=== PATIENT | male | born 1930 | race Caucasian/White ===

== ENCOUNTER 2017-05-24 16:03 | Emergency (ER) | payer MEDICARE ==
--- NOTE | 2017-05-24 16:06 | ED.PDOC ---
History of Present Illness - General Chief Complaint: Trauma Stated Complaint: Right lateral hip pain s/p fall. Time Seen by Provider: 05/24/17 16:06 Source: patient, RN notes reviewed, family Additional Information: Stoic elderly gentleman who fell from 4 foot high ladder about 6 hours ago. He states he got up ambulated with his cane, drove home, and later in the day called his daughter to let her know about his fall and the pain. Daughter insisted that patient come in to get evaluated in ER. Pt in no distress at rest. He is able to bear weight with assistance of his cane. He has a congenitally shortened right leg. It is not externally rotated. The only other injuries noted/reported are mild bruising to the medial right knee and an abrasion covered with a band-aid on right lateral elbow region. - History of Present Illness Occurred: this morning Severity: moderate Injuries/Pain Location: upper extremity, pelvis, lower extremity Reason for Fall: unknown Loss of Consciousness: no loss of consciousness Improving Factors: immobilization, rest Worsening Factors: movement Associated Symptoms (Fall): denies symptoms Allergies/Adverse Reactions: Allergies NO KNOWN ALLERGY Allergy (Verified 05/24/17 16:16) Home Medications: Ambulatory Orders Acetamin W/Cod #3 Tab [Tylenol #3 Tab] 1 ea PO Q4-6H PRN #20 tab 05/24/17 Review of Systems - Review of Systems Constitutional: States: no symptoms reported EENTM: States: no symptoms reported Respiratory: States: no symptoms reported Cardiology: States: no symptoms reported Gastrointestinal/Abdominal: States: no symptoms reported Genitourinary: States: no symptoms reported Musculoskeletal: States: see HPI, joint pain - Right hip pain Skin: States: see HPI - abrasion to right upper extremity covered wtih band-aid Neurological: States: no symptoms reported Endocrine: States: no symptoms reported Hematologic/Lymphatic: States: no symptoms reported Past Medical History (General) - Patient Medical History Hx Other - free text: Nurse Triage note reviewed. Physical Exam - Physical Exam General Appearance: Alert, Comfortable, No apparent distress, Well Developed, Well Groomed, Well Hydrated, Well Nourished Head Injury: no evidence of injury Eye Exam: bilateral normal ENT Exam: other - hard of hearing at baseline Cardiovascular/Respiratory: normal peripheral pulses, no respiratory distress Gastrointestinal/Abdominal: soft Back Exam: normal inspection Extremity Exam: pain with movement, other - RIght hip stiffness. 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 X-ray to rule out occult bony problems. 05/24/17 17:05 X-ray showed Right pubic rami fracture. CT Pelvis obtained to get a better view. Will discharge home given excellent family support and recommend Physical Therapy and close PCM follow-up. - EKG/XRAY/CT XRAY: hip - Right superior and inferior pubic rami fractures Departure - Departure Clinical Impression: Arthritis of right hip Contusion of hip, right Qualifiers: Encounter type: initial encounter Qualified Code(s): S70.01XA - Contusion of right hip, initial encounter Pubic ramus fracture Qualifiers: Encounter type: initial encounter Fracture type: closed Laterality: right Qualified Code(s): S32.591A - Other specified fracture of right pubis, initial encounter for closed fracture Time of Disposition: 17:16 Disposition: Discharge to Home or Self Care Departure Forms: ED Discharge - Pt. Copy, Patient Portal Self Enrollment Instructions: DI for Hip Fracture Activity: ambulate only with walker, as per physical therapy, walking as tolerated Prescriptions: Acetamin W/Cod #3 Tab [Tylenol #3 Tab] 1 ea PO Q4-6H PRN #20 tab PRN Reason: Pain -- Moderate To Severe Home Medications: Ambulatory Orders Acetamin W/Cod #3 Tab [Tylenol #3 Tab] 1 ea PO Q4-6H PRN #20 tab 05/24/17 Additional Instructions: Early mobility and Physical Therapy are best for recovery. Follow-up with primary care provider as soon as possible in order to arrange for home Physical Therapy. Use a walker and/or cane for now in order to weight bear as tolerated on right hip. Motion is lotion. Return to ER if condition worsens.
[2017-05-24 16:16] VITALS: TEMP 98.1
[2017-05-24] MEDS ORDERED: POVIDONE IODINE 10 % 15 ML UD TOP ONE (16:27)
--- NOTE | 2017-05-24 16:34 | RAD ---
EXAM DESCRIPTION: Hip,Right 2 Views CLINICAL HISTORY: 86 years Male s/p fall. Right lateral hip pain. r/o fracture. COMPARISON: None. TECHNIQUE: RIGHT hip, two views FINDINGS: There is chronic severe degenerative change involving the right hip. The acetabulum is shallow which may be congenital or as a result of chronic erosive change. There is deformity of the femoral head with volume loss. The hip is superiorly and laterally subluxed but this change appears chronic. There appears to be an acute fracture of the right superior and inferior pubic rami. Recommend further evaluation with CT of the pelvis. Vascular calcification is present. IMPRESSION: Acute fracture of the right superior and inferior pubic rami. Recommend CT of the pelvis. Suspect additional fracture may be present Chronic severe degenerative change in the right hip with chronic appearing subluxation and volume loss in the right femoral head Electronically signed by: Michelle Worley 05/24/2017 4:33 PM CDT
--- NOTE | 2017-05-24 17:02 | CT ---
PROCEDURE: Pelvis CLINICAL HISTORY: 86 years ,Male ,rule out acute right hip fracture s/p Fall COMPARISON: X-ray 05/24/2017 TECHNIQUE: Contiguous axial images obtained through the pelvis without IV contrast. Coronal and sagittal reformatted images obtained. This exam was performed according to our department optimization program which includes automated exposure control, adjustment of the mA and/or kv according to patient size and/or use of iterative reconstruction technique. FINDINGS: There is calcification in aorta and its branches. Radiation seed implants in the prostate. The symphysis pubis appear intact. There are fractures of the right inferior pubic ramus and fracture of the superior pubic ramus with involvement of the body of the pubis on the right. The left inferior pubic ramus and superior pubic ramus appear intact. A displaced fracture of the sacrum is not identified. There is no evidence of acute fracture of either hip. There is severe degenerative change and chronic erosion of the acetabulum with fragmentation, volume loss and marked osteophytosis involving the femoral head. IMPRESSION: Acute fractures of the right superior and inferior pubic ramus with involvement of the body of the pubis No evidence of acute right hip fracture There are chronic severe erosive changes involving the right hip and acetabulum with chronic superolateral subluxation of the hip. Electronically signed by: Michelle Worley 05/24/2017 5:00 PM CDT
[2017-05-24 17:51] VITALS: BP 145/80; O2SAT 96
== END 2017-05-24 17:37 | disposition home or self-care (01) ==
LOC: ER 16:03 → SUPCPDRO 16:03 → ER 17:37
DX: S70.01XA Contusion of right hip, initial encounter (principal); S32.591A Other specified fracture of right pubis, initial encounter for closed fracture; M13.851 Other specified arthritis, right hip; W11.XXXA Fall on and from ladder, initial encounter; Y92.9 Unspecified place or not applicable

== ENCOUNTER → 2017-07-16 | Outpatient (CLI) | payer MEDICARE | END | disposition home or self-care (01) | LOC: GMAH 11:42 | PROVIDERS: ATTEND Family Medicine | DX: Z12.5 Encounter for screening for malignant neoplasm of prostate (principal); E78.00 Pure hypercholesterolemia, unspecified; I10 Essential (primary) hypertension | CPT/HCPCS: 84443; 84550; G0103 ==

== ENCOUNTER 2017-11-22 14:01 | Emergency (ER) | payer MEDICARE ==
--- NOTE | 2017-11-22 14:18 | ED.PDOC ---
History of Present Illness - General Chief Complaint: Upper Extremity Injury Stated Complaint: injury with electric saw left hand Time Seen by Provider: 11/22/17 14:17 Source: patient Exam Limitations: no limitations - History of Present Illness Initial Comments: Donovan Mccurdy 87 y/o male stated working with his table saw doing woodwork and accidentally cut his left 5th,and 4th digit his little finger almost totally amputated REFUSING TO GO TO [facility] to be taken cared. He wants his 5th little finger to be cut off consent was signed. Occurred: just prior to arrival Pain - Upper Extremity: severe: Hand, left Method of Injury: other - see hpi Improving Factors: rest Worsening Factors: movement Allergies/Adverse Reactions: Allergies NO KNOWN ALLERGY Allergy (Verified 05/24/17 16:16) Home Medications: Ambulatory Orders Acetamin W/Cod #3 Tab [Tylenol #3 Tab] 1 ea PO Q4-6H PRN #20 tab 05/24/17 Acetaminophen W/ Codeine [Tylenol W/ CODEINE #3] 1 ea PO Q4HR PRN #30 11/22/17 Cephalexin 1,000 mg PO BID 10 Days #40 cap 11/22/17 Review of Systems - Review of Systems Constitutional: States: no symptoms reported EENTM: States: no symptoms reported Respiratory: States: no symptoms reported Musculoskeletal: States: see HPI All other Systems: Reviewed and Negative, No Change from Baseline Past Medical History (General) - Patient Medical History Hx Cardiac Disorders: Yes Hx Congestive Heart Failure: No Hx Diabetes: No Hx Cancer: Yes - Prostate - Vaccination History Hx Influenza Vaccination: No Hx Pneumococcal Vaccination: No - Social History Hx Tobacco Use: Yes Hx Alcohol Use: No Hx Substance Use: No Hx Physical Abuse: No Hx Emotional Abuse: No - Activities of Daily Living Grooming Ability: Independent Eating (Feeding) Ability: Independent Toileting Ability: Independent Family Medical History - Family History Father Family History: Unknown Living Status: Physical Exam - Physical Exam General Appearance: Alert, Comfortable, No apparent distress Eyes, Ears, Nose, Throat Exam: normal ENT inspection Neck: non-tender, full range of motion, supple Cardiovascular/Respiratory: regular rate, rhythm, no M/R/G, normal peripheral pulses Abdominal Exam: non-tender, no organomegaly Back Exam: normal inspection, no CVA tenderness, no vertebral tenderness Elbow/Forearm Exam: no evidence of injury Wrist Exam: no evidence of injury Hand Exam: laceration - left 4th digit 3 cms;near amputation middle phalanx left 5th digit Progress - Progress Progress: 11/22/17 16:40 Vital Signs - 8 hr 11/22/17 14:01 Temperature 97.9 F Pulse Rate [ 65 right brachial] Respiratory 20 Rate Blood Pressure 112/60 [right brachial ] O2 Sat by Pulse 98 Oximetry - Results/Orders Results/Orders: Laceration Repair: 5th digit left hand-Near amputation left 5th digit with hanging middle phalanx left 5th digit patient wants piece of finger cut off and declining to go to [place] for ortho referral. Cleanse with hibiclens left 5th digit and profusely irrigated with sterile saline ;Metacarpal block done on 5th digit then bone fragments was taken out then after cleansing out bone fragments finger stump was trimmed and suture ligation of bleeders done followed by closure of finger stump about 3 cms with ethilon and prolene sterile dressing applied. 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 Copy, Patient Portal Self Enrollment Instructions: DI for Laceration Repair -- Finger, DI for Laceration Repair, How to Care for a Laceration After Repair Referrals: Jin Epstein MD [Primary Care Provider] - 1-2 Weeks Prescriptions: Acetaminophen W/ Codeine [Tylenol W/ CODEINE #3] 1 ea PO Q4HR PRN #30 PRN Reason: Pain Cephalexin 1,000 mg PO BID 10 Days #40 cap Home Medications: Ambulatory Orders Acetamin W/Cod #3 Tab [Tylenol #3 Tab] 1 ea PO Q4-6H PRN #20 tab 05/24/17 Acetaminophen W/ Codeine [Tylenol W/ CODEINE #3] 1 ea PO Q4HR PRN #30 11/22/17 Cephalexin 1,000 mg PO BID 10 Days #40 cap 11/22/17 Additional Instructions: Recheck wound 28 November 2017 [facility] ER
[2017-11-22] MEDS ORDERED: TETANUS,DIPHTHERIA,PERTUSSIS 1 EA SYG IM ONE (14:19)
[2017-11-22] MEDS ORDERED: ceFAZolin SODIUM 1 GM VIAL IM ONE (14:19)
[2017-11-22] MEDS ORDERED: LIDOCAINE 1% 10 ML VIAL INJ ONE ×2 (14:48)
[2017-11-22] MEDS ORDERED: CHLORHEXIDINE GLUCONATE 4 % 15 ML UD TOP ONE (14:49)
--- NOTE | 2017-11-22 14:50 | RAD ---
PROCEDURE: Hand,Left 3 Views CLINICAL HISTORY: laceration left 4th/5th finger INDICATION: Same as above COMPARISON: None . TECHNIQUE: 3.0 Views of the left hand were done. FINDINGS: There is significant soft tissue laceration at the level of the PIP joint of the fifth digit along with presence of comminuted fracture involving the base of the middle phalanx of the fifth digit at the level of the PIP joint. There is 8 mm diastases between the two main fracture fragments of the middle phalanx. There is presence of a 3 mm radiopaque foreign body in the soft tissues at the level of the dorsal aspect of the distal second metacarpal bone There is generalized osteopenia of the bones. Significant degenerative changes are seen at the based of the first carpometacarpal joint. There is no visualization of any radiopaque foreign bodies in the evaluated soft tissues. If the wrist pain persists, repeat films can be done in 7-10 days interval to rule out occult fractures. Alternatively an MRI of the wrist can be obtained. IMPRESSION: There is significant soft tissue laceration at the level of the PIP joint of the fifth digit along with presence of comminuted fracture involving the base of the middle phalanx of the fifth digit at the level of the PIP joint. There is 8 mm diastases between the two main fracture fragments of the middle phalanx. There is presence of a 3 mm radiopaque foreign body in the soft tissues at the level of the dorsal aspect of the distal second metacarpal bone Electronically signed by: Eagle Bedolla MD 11/22/2017 2:49 PM CDT Workstation: [id number]
[2017-11-22 14:58] VITALS: TEMP 97.9; O2SAT 98
[2017-11-22 17:18] VITALS: BP 138/74
== END 2017-11-22 17:09 | disposition home or self-care (01) ==
LOC: ER 14:01
DX: S68.127A Partial traumatic metacarpophalangeal amputation of left little finger, initial encounter (principal); S61.215A Laceration without foreign body of left ring finger without damage to nail, initial encounter; Z85.46 Personal history of malignant neoplasm of prostate; Z87.891 Personal history of nicotine dependence; Z23 Encounter for immunization; W29.8XXA Contact with other powered hand tools and household machinery, initial encounter
CPT/HCPCS: 73130; 90471; 90715; J0690

== ENCOUNTER → 2018-03-09 | Outpatient (CLI) | payer MEDICARE ==
--- NOTE | 2018-03-09 15:54 | CT ---
EXAM DESCRIPTION: Head CLINICAL HISTORY: ALTERED MENTAL STATUS COMPARISON: None available TECHNIQUE: Contiguous axial images through the head were obtained without intravenous contrast administration. Sagittal and coronal reconstructions were reviewed. FINDINGS: Right frontoparietal extra-axial fluid collection measuring up to 2.8 cm in thickness is identified. 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 There is mass effect on the underlying brain parenchyma with a midline shift of approximately 5.3 mm to the left. 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 There is entrapment of the right lateral ventricle with mild dilatation of the left lateral ventricle. No evidence of infratentorial herniation. The cisterns are well preserved. The sella and suprasellar regions appear normal. The structures of the posterior fossa are intact. The globes are intact bilaterally. The visualized paranasal sinuses and mastoid air cells are well-aerated. Review of the bones demonstrates no gross instability. IMPRESSION: Right frontoparietal extra-axial fluid collection measuring up to 2.8 cm in thickness is identified. 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 There is mass effect on the underlying brain parenchyma with a midline shift of approximately 5.3 mm to the left. There is entrapment of the right lateral ventricle with mild dilatation of the left lateral ventricle. No evidence of infratentorial herniation. This exam was performed according to our departmental dose-optimization program, which includes automated exposure control, adjustment of the mA and/or kV according to patient size and/or use of iterative reconstruction technique. Electronically signed by: Karena Guzman MD 03/09/2018 3:53 PM CDT
== END ==
LOC: MRI 15:17
PROVIDERS: ATTEND Family Medicine
DX: R41.82 Altered mental status, unspecified (principal)

== ENCOUNTER → 2018-03-26 | Outpatient (CLI) | payer MEDICARE ==
--- NOTE | 2018-04-13 09:27 | CT ---
EXAM DESCRIPTION: CT HEAD WITHOUT IV CONTRAST: Computed Tomography. CLINICAL HISTORY: EVALUATE SUBDURAL HEMATOMA COMPARISON: CT scan of the head without contrast 03/09/2018. TECHNIQUE: Non-helical axial scans through the skull and brain, at 2.5 mm intervals, non-contrast. Coronal and sagittal 2.0 mm reconstructions. Total Exam DLP: 59.97 mGy-cm. This exam was performed according to our departmental dose-optimization program which includes automated exposure control, adjustment of the mA and/or kV according to patient size and/or use of iterative reconstruction technique; to reduce radiation dose to as low as reasonably achievable (ALARA). FINDINGS: Again noted is large chronic subdural hematoma abutting the right lateral cerebral hemisphere. At the level of the lower falx, the AP length is 10.5 cm compared to 9.7 cm on the prior study. Radiodense hemorrhage is not as evident. At the level of the superior right lateral ventricle, AP dimension is 12.1 cm compared to 8.3 cm on the prior study. There is increased midline shift of the right lateral ventricle compared to the prior study with more effacement of the frontal and occipital horns compared to the prior study. The hematoma measures 6.1 x 2.2 cm from the falx joins the tentorium on coronal image 80. At this same location on the prior study, the hematoma measures 3.6 x 1.4 cm. More effacement noted on the cortical sulci in the right cerebral hemisphere.. Vascular calcifications unchanged.; physiologic calcifications in the pineal gland and choroid plexus. Again noted is large area of encephalomalacia in the posterior left temporal lobe and inferior left occipital lobe associated with dilation of the posterior left lateral ventricle and the occipital horn of the ventricle. No intra-axial extra-axial hemorrhage abutting the left cerebral hemisphere. No mass effect on the brainstem or cerebellar hemisphere. No tonsillar herniation. No intra-axial extra-axial hemorrhage. No gross abnormalities of the bony calvarium. Included paranasal sinuses and mastoid air cells are well - aerated. IMPRESSION: 1. Enlarging right subdural chronic hematoma compared to the prior study. No new hemorrhage intra-axial or extra-axial.. Minimal mass effect and slight increase in midline shift to the left since the prior study. No mass effect on the brainstem or cerebellar hemispheres. No tonsillar herniation. Electronically signed by: Hawk Boo MD 03/26/2018 4:07 PM CDT
== END ==
LOC: CT 14:00
PROVIDERS: ATTEND Family Medicine
DX: G45.9 Transient cerebral ischemic attack, unspecified (principal); I62.03 Nontraumatic chronic subdural hemorrhage